=== PATIENT | female | born 1965 | race Caucasian/White ===

== ENCOUNTER → 2017-08-13 07:23 | Outpatient (CLI) | payer OTHER, SELFPAY ==
[2017-08-13 08:22] LABS: Alanine Aminotransferase 34 U/L (12-78); Albumin Level 3.7 gm/dL (3.4-5.0); Alkaline Phosphatase 126 U/L (46-116); Anion Gap 9.6 mEq/L (5-15); Aspartate Amino Transferase 10 U/L (15-37); Bilirubin,Total 0.4 mg/dL (0.2-1.0); Blood Urea Nitrogen 18 mg/dL (7-18); Carbon Dioxide 29 mmol/L (21.0-32.0); Chloride 106 mmol/L (98-107); Chol/HDL Ratio 3.3 (1-3.5); Cholesterol 196 mg/dL (140-200); Creatinine,Serum 0.76 mg/dL (0.55-1.02); Estimated Glomerular Filt Rate 81 ml/min (>60); GFR (African American) 97 ML/MIN (>60); Globulin 3.8 gm/dl (1.3-3.2); Glucose 96 mg/dL (74-106); HDL Cholesterol 59 mg/dL (29-89); LDL Cholesterol 120 mg/dL (0-130); Potassium 4.6 mmoL/L (3.5-5.1); Sodium 140 mmol/L (136-145); Thyroid Stimulating Hormone 1.23 uIU/ml (0.358-3.740); Total Protein,Serum 7.5 gm/dL (6.4-8.2); Triglycerides 85 mg/dL (30-200); VLDL Cholesterol 17 mg/dL (0-40)
== END ==
PROVIDERS: PCP Family Medicine; Visit Provider Physician Assistant
DX: E78.5 Hyperlipidemia, unspecified (principal); Z13.29 Encounter for screening for other suspected endocrine disorder
CPT/HCPCS: 36415; 80053; 80061; 84443

== ENCOUNTER 2021-03-15 20:11 | Emergency (ER) | payer OTHER, SELFPAY ==
[2021-03-15 20:13] VITALS: BP 141/95; PULSE 84; RESP 16; TEMP 36.8; O2SAT 97; BMI 24.4
[2021-03-15 20:18] VITALS: BP 141/95; PULSE 81; O2SAT 97
--- NOTE | 2021-03-15 20:20 | XR_ITS ---
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 Views: 2 or 3 views. COMPARISON: CR LS5 LUMBAR SPINE 5 VIEWS 01/23/2016 2:24 PM FINDINGS: Bones/joints: There is a mild levo convexity scoliosis of the lumbar spine with mild multilevel discogenic disease and spondylosis. There is no acute compression fracture or spondylolisthesis. The posterior elements appear intact and normally articulated. There is facet arthropathy within the mid and lower lumbar spine. Soft tissues: Unremarkable. Intraperitoneal space: Cholecystectomy clips are incidentally noted. Vasculature: There are numerous phleboliths in the pelvis. IMPRESSION: As detailed above.
[2021-03-15 20:31] VITALS: BP 139/87; PULSE 71; O2SAT 97
--- NOTE | 2021-03-15 20:35 | HMH.EDGENADL ---
ED Disposition Clinical Impression: Low back strain Qualifiers: Encounter type: initial encounter Qualified Code(s): S39.012A - Strain of muscle, fascia and tendon of lower back, initial encounter Disposition: Home, Self-Care Condition on Discharge: Fair Instructions: DI for Low Back Pain Additional Instructions: You have been evaluated for low back pain after lifting. Most likely a musculoskeletal injury. Please continue taking ibuprofen 600 mg and Robaxin. Use stretching, heat. Follow-up with your primary care doctor. Return to the emergency department for any new or worsening symptoms. Prescriptions: Ibuprofen [Ibuprofen 600mg Tablet] 600 mg PO Q8 #18 tab Transmission Status: Pending to [facility] methocarbamoL [Methocarbamol 500mg Tablet] 500 mg PO BID #20 tab Transmission Status: Pending to [facility] Referrals: Eleazar Montesinos MD [Primary Care Provider] - Forms: Work/School Release Time of Disposition: 22:05 - Critical Care Critical Care Time: No Attestation: On 03/15/21, the high probability of a clinically significant, sudden or life threatening deterioration of the following system(s) required my full and direct attention, intervention and personal management. The time I documented below is in addition to time spent performing reported procedures but includes the following listed in this critical care notation. Medical Decision Making - Medical Records Medical records reviewed: Yes: I reviewed the patient's medical records. - Amadou Inquiry Pt receiving controlled substance: No Vital Signs: 03/15/21 20:13 03/15/21 20:18 03/15/21 20:31 Temperature 98.3 F Temperature Source Oral Pulse Rate 81 71 Pulse Rate [Right Radial] 84 Respiratory Rate 16 Blood Pressure 141/95 H 139/87 Blood Pressure [Right Arm] 141/95 H Blood Pressure Mean [Right Arm] 110 Blood Pressure Source [Right Arm] Automatic Cuff Blood Pressure Position [Right Arm] Sitting 02 Sat by Pulse Oximetry 97 97 97 Oxygen Delivery Method Room Air Room Air Room Air Orders (Tests/Meds): ED MEDICATIONS Generic Name Dose Route Start Last Admin Trade Name Freq PRN Reason Stop Dose Admin Methocarbamol 500 mg 03/15/21 21:00 03/15/21 20:39 Methocarbamol 500mg Tablet PO 04/14/21 20:59 500 mg BID AVRIL Administration Discontinued Medications Generic Name Dose Route Start Last Admin Trade Name Sharon PRN Reason Stop Dose Admin Ibuprofen 600 mg 03/15/21 20:34 03/15/21 20:38 Ibuprofen 600 Mg Tablet PO 03/15/21 20:35 600 mg ONCE ONE Administration ORDERS Category Date Time Status XR lumbar spine 2-3V Stat Exams 03/15/21 20:20 Taken Medical Decision Narrative: In summary this is a 55-year-old female presenting to the emergency department with right-sided low back pain after lifting. She is clinically stable on arrival. Vital signs within normal limits. Most likely diagnosis is musculoskeletal strain. Cannot exclude stress fracture or other bony abnormality. Will obtain x-rays of the lumbar spine. Given 500 mg Robaxin and 600 mg ibuprofen X-ray shows slight dextroscoliosis. No fracture or other bony abnormalities. Patient counseled to use anti-inflammatories, stretching, motion. Follow-up with PCP. Stable for discharge. General Adult HPI - General Stated complaint: AO 03/15@1850 INJURED BACK Time Seen by Provider: 03/15/21 20:35 Mode of Arrival: Ambulatory Source of Information: Patient Limitations: No Limitations - History of Present Illness HPI narrative: 55-year-old female presenting to the emergency department with right-sided low back pain, injury. 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 As the patient stood she lost her balance. Patient experienced sudden onset of right-sided low back pain. Radiates into her buttock and her leg. Was described as sharp. Now throbbing. Worse with motion. No numbness, w
--- NOTE | 2021-03-15 20:41 | PC.NURSE ---
Lab notified of needing UDS collected for [place] workers comp
--- NOTE | 2021-03-15 20:47 | PC.NURSE ---
pt gone to rad
--- NOTE | 2021-03-15 20:53 | PC.NURSE ---
pt back in room from rad
[2021-03-15 22:25] VITALS: BP 138/96; PULSE 64; RESP 16; TEMP 36.7; O2SAT 98
== END 2021-03-15 22:27 | disposition home or self-care (01) ==
PROVIDERS: Emergency Provider Emergency Medicine; PCP Family Medicine
DX: S39.012A Strain of muscle, fascia and tendon of lower back, initial encounter (principal); X50.0XXA Overexertion from strenuous movement or load, initial encounter
CPT/HCPCS: 72100; 99282

== ENCOUNTER → 2021-05-13 10:20 | Outpatient (CLI) | payer OTHER, SELFPAY ==
--- NOTE | 2021-05-13 10:21 | MR_ITS ---
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 3-D MIP and myelographic images are also rendered and reviewed FINDINGS: There is mild lumbar scoliosis convex left with a clockwise rotation of the lumbar spine. Spinal cord ends at the L1 level. L1-L2: Mild degenerative changes with small Schmorl's nodes at the endplates. Mild facet hypertrophic change. L2-L3: Degenerative disc disease with bulging disc/disc osteophyte complex slightly eccentric toward the right with facet and ligamentum hypertrophic changes with mild right lateral recess narrowing and mild right foraminal narrowing. The bulging disc/disc osteophyte complex has developed since the previous exam L3-L4: Asymmetric bulging disc eccentric toward the left. There is a small foraminal disc protrusion abutting the exiting L3 nerve root similar to the previous exam. Facet and ligamentum hypertrophic change with mild bilateral lateral recess and foraminal narrowing slightly greater on the right compared to the left. The facet and ligamentum hypertrophy is slightly greater. L4-5: 2-3 mm anterolisthesis of L4 with mild disc desiccation and bulging disc with facet and ligamentum hypertrophy with bilateral lateral recess and foraminal narrowing slightly greater on the right compared to the left. These findings have slightly progressed. L5-S1: Facet and ligamentum hypertrophy with mild left-sided foraminal narrowing. No enhancing lesions are evident. IMPRESSION: Abnormal MRI of the lumbar spine with dextroscoliosis with mild rotary component with multilevel lumbar spondylosis with bulging disc, facet ligamentum hypertrophy and with lateral recess and foraminal narrowing. Please see above for detailed description at each level. No extruded herniated disc. No enhancing lesions apparent Dictated by: Timotoe Fletcher MD 05/14/2021 11:30 Timoteo Fletcher MD in [facility] 05/14/2021 11:30
== END ==
PROVIDERS: PCP Family Medicine; Visit Provider Family Medicine
DX: M54.41 Lumbago with sciatica, right side (principal)
CPT/HCPCS: 72158; 76376; A9576

== ENCOUNTER 2021-05-27 08:30 | Outpatient (RCR) | payer OTHER, SELFPAY ==
--- NOTE | 2021-04-16 09:59 | HMH.PTOPEV ---
PT Outpatient Evaluation Rehab PT Outpatient Evaluation Start: 04/16/21 09:24 Freq: Status: Active Protocol: Document 04/16/21 09:24 MENDY (Rec: 04/16/21 09:58 MENDY [id number]) Electronically Signed By Don Alvarez, PT 04/16/21 09:24 Outpatient Therapy Subjective History Subjective History Pt reports work-related injury on 03/15/21. 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 Pt reports R >L sided LBP and hip pain, continued N&T in Bilateral LE' s, and referred pain/mm guarding into Thoracic area. Chief Complaint Pain,Spasms,Stiff,Paresthesia Symptom Type Ache,Dull,Stabbing,Burning, Numbness,Tingling Symptoms Relieved By Nothing Symptoms Aggravated By Standing,Bending/Stooping, Physical Activity,Twisting, Walking,Lifting Prior Functional Limitations None Current Functional Limitations Lifting,Housework,Driving, Sleeping,Standing,Walking, Bending/Stooping Symptom Description Constant and Continuous Level of pain today (0-10) 9 Pain scale - at its best (0-10) 9 Pain scale - at its worst (0-10) 10 Lumbopelvic Eval Posture Thoracic Spine Posture Standing Position Flattened Lumbar Spine Posture Standing Position Flattened Gait Observation General Gait Pattern Observation Antalgic Gait,Shuffling Step Palapation tenderness bilateral thoracic spinal tenderness Yes: 3/4 lumbar spinal tenderness Yes: 4/4 paraspinal tenderness Yes: 3/4 buttock tenderness Yes: 3/4 Lumbar/Sacral Palpation Findings Tenderness,Spasm,Trigger Point ,Muscle Guarding Accessory Movement T-spine Vertebrae Accessory Movements Central P/A [place] that Elicit Symptoms T10 bilateral T11 bilateral T12 bilateral L-spine Vertebrae Accessory Movements Central P/A [place] that Elicit Symptoms L2 bilateral L3 bilateral L4 bilateral L5 bilateral S1 bilateral Range of Motion Lumbar Spine Active Flexion Range of 0-40 Motion (degrees) Lumbar Spine Active Extension Range of 0-5 Motion (degrees) Left Lumbar Spine Lateral Flexion Active 0-20
--- NOTE | 2021-05-15 10:25 | HMH.RHREAS ---
Rehab Reassessment Rehab OP Re-assessment Start: 05/15/21 09:56 Freq: Status: Active Protocol: Document 05/15/21 10:21 MENDY (Rec: 05/15/21 10:24 MENDY [id number]) Electronically Signed By Don Alvarez, PT 05/15/21 10:21 Rehab Re-assessment Subjective Subjective Pt reports 8/10 pain in right side low back this am on VAS, and feels 'maybe a little better' since I eval Objective Objective Notes AROM: LUMBAR SPINE FLX 0-46, ext 0-24, R SB 0-26, L SB 0-35 MMT: BILATERAL HIP FLX 4+/5, B KNEE EXT 5/5, B KNEE FLX 5/5, B DF 5/5 TTP: YASMIN. LUMBAR PARA 1-2/4 Assessment Progress Assessment Slower Than Expected Assessment Notes IMPROVED ROM, STRENGTH, AND TTP Patient goals met STG'S 10/15 Goals Not Met STG'S 11/15, LTG'S 04/17 Plan Plan Pt to continue w/skilled P.T. to make further improvements in lumbar spine AROM, strength , TTP, and gait to allow for optimal function and return to work full-duty. Frequency of Therapy 2-3x/wk Duration of therapy 4-6wks Time and Billing Re-Eval Time 15 Re-Eval Billing Units 1 PHYSICIAN CERTIFICATION: I certify the specified therapy services for Tila Horn are required, authorized, and reviewed every 30 days.
== END 2021-05-27 08:35 | disposition home or self-care (01) ==
LOC: PT 08:30
PROVIDERS: Visit Provider Family Medicine
DX: S39.012A Strain of muscle, fascia and tendon of lower back, initial encounter (principal)
CPT/HCPCS: 97010; 97014; 97035; 97110; 97140; 97163; 97164; G0283

== ENCOUNTER → 2021-11-20 07:58 | Outpatient (CLI) | payer OTHER, SELFPAY ==
[2021-11-20 08:05] LABS: Microscopic, Urine URINE MICROSCOPIC (MICROSCOPIC)
[2021-11-20 08:18] LABS: Appearance,Urine CLOUDY (Clear); Basophils # 0.1 K/mm3 (0-0.2); Basophils % 2.1 % (0.1-2.0); Bilirubin,Urine Negative (Negative); Blood, Urine TRACE-I (Negative); Color,Urine YELLOW (Yellow); Eosinophils # 0.2 K/mm3 (0.0-0.4); Eosinophils % 3.6 % (0.1-12.0); Glucose,Urine (UA) Negative (Negative); Hematocrit 46.4 % (37.0-47.0); Hemoglobin 15.4 g/dL (12.2-16.2); Ketones,Urine Negative (Negative); Leukocyte Esterase,Urine 3+ (Negative); Lymphocytes # 2.2 K/mm3 (0.7-4.5); Lymphocytes % 35.9 % (10-50); Mean Corpuscular HGB Conc 33.1 g/dL (31.8-35.4); Mean Corpuscular Hemoglobin 31.6 pg (27.0-31.2); Mean Corpuscular Volume 95.5 fl (81-99); Mean Platelet Volume 9.4 fl (7.4-10.4); Monocytes # 0.4 K/mm3 (0.1-1.0); Monocytes % 7.2 % (1.7-9.3); Neutrophils # 3.1 K/mm3 (1.8-7.8); Neutrophils % 51.2 % (37.0-80.0); Nitrate,Urine POSITIVE (Negative); Platelet Count 264 K/mm3 (142-424); Protein,Urine Negative (Negative); Red Blood Count 4.86 M/mm3 (4.20-5.40); Red Cell Distribution Width 13.1 % (11.5-17.5); Specific Gravity, Urine 1.015 (1.005-1.030); Urobilinogen,Urine 0.2 EU/dl (0.2)
[2021-11-20 08:35] LABS: RBC,Urine Occasional #/hpf (0-3); WBC,Urine 20-50 #/hpf (0-3)
[2021-11-20 08:36] LABS: Bacteria,Urine 3+ /lpf
[2021-11-20 08:45] LABS: Chloride 106 mmol/L (98-107)
[2021-11-20 08:46] LABS: Potassium 4.3 mmoL/L (3.5-5.1); Sodium 139 mmol/L (136-145)
[2021-11-20 08:48] LABS: Blood Urea Nitrogen 10 mg/dl (7-17); Estimated Glomerular Filt Rate 87 ml/min (>60); GFR (African American) 105 ML/MIN (>60)
[2021-11-20 08:49] LABS: Anion Gap 12.3 mEq/L (5-15); Calcium 9.4 mg/dl (8.4-10.2); Carbon Dioxide 25 mmol/L (22.0-30.0); Glucose 107 mg/dl (74-100)
== END ==
PROVIDERS: PCP Family Medicine; Visit Provider Orthopaedic Surgery
DX: Z01.812 Encounter for preprocedural laboratory examination (principal); Z20.822 Contact with and (suspected) exposure to COVID-19; N39.0 Urinary tract infection, site not specified; B96.20 Unspecified Escherichia coli [E. coli] as the cause of diseases classified elsewhere
CPT/HCPCS: 36415; 80048; 81001; 85025; 87086; 87088; 87186; C9803; U0003; U0005

== ENCOUNTER 2022-01-08 08:30 | Outpatient (RCR) | payer OTHER, SELFPAY | END 2022-01-08 08:35 | disposition home or self-care (01) | LOC: PT 08:30 | PROVIDERS: PCP Family Medicine; Visit Provider Orthopaedic Surgery | DX: M54.50 Low back pain, unspecified (principal); M96.1 Postlaminectomy syndrome, not elsewhere classified | CPT/HCPCS: 97110; 97112; 97163; 97530; 97535 ==

== ENCOUNTER → 2022-07-30 16:05 | Outpatient (CLI) | payer OTHER, SELFPAY ==
[2022-07-30 17:09] LABS: Basophils % 0.6 % (0.1-2.0); Eosinophils # 0.2 K/mm3 (0.0-0.4); Eosinophils % 2.3 % (0.1-12.0); Hematocrit 49.3 % (37.0-47.0); Hemoglobin 15.5 g/dL (12.2-16.2); Lymphocytes # 2.7 K/mm3 (0.7-4.5); Mean Corpuscular HGB Conc 31.4 g/dL (31.8-35.4); Mean Corpuscular Hemoglobin 30.3 pg (27.0-31.2); Mean Corpuscular Volume 96.7 fl (81-99); Mean Platelet Volume 9.7 fl (7.4-10.4); Monocytes # 0.5 K/mm3 (0.1-1.0); Monocytes % 6.6 % (1.7-9.3); Neutrophils # 3.5 K/mm3 (1.8-7.8); Neutrophils % 50.6 % (37.0-80.0); Platelet Count 313 K/mm3 (142-424); Red Cell Distribution Width 12.7 % (11.5-17.5); White Blood Count 6.8 K/mm3 (4.8-10.8)
[2022-07-30 17:25] LABS: Alanine Aminotransferase 31 U/L (12-78); Albumin Level 4.5 g/dl (3.5-5.0); Albumin/Globulin Ratio 1.4 (1.1-1.8); Alkaline Phosphatase 150 U/L (38-126); Anion Gap 6.2 mEq/L (5-15); Aspartate Amino Transferase 27 U/L (14-36); Bilirubin,Total 0.6 mg/dl (0.2-1.3); Blood Urea Nitrogen 12 mg/dl (7-17); Calcium 9.6 mg/dl (8.4-10.2); Carbon Dioxide 27 mmol/L (22.0-30.0); Chloride 108 mmol/L (98-107); Chol/HDL Ratio 4.9 (1-3.5); Cholesterol 258 mg/dl (140-200); Estimated Glomerular Filt Rate 74 ml/min (>60); GFR (African American) 90 ML/MIN (>60); Globulin 3.2 g/dL (1.3-3.2); Glucose 87 mg/dl (74-100); HDL Cholesterol 53 mg/dl (40-60); Potassium 4.2 mmoL/L (3.5-5.1); Sodium 137 mmol/L (136-145); Total Protein,Serum 7.7 g/dl (6.3-8.2); Triglycerides 110 mg/dl (30-150); VLDL Cholesterol 22 mg/dL (0-40)
[2022-07-30 17:35] LABS: Direct LDL Cholesterol 146.95 mg/dL (100-129)
== END ==
PROVIDERS: PCP Family Medicine; Visit Provider Nurse Practitioner Obstetrics & Gynecology
DX: Z01.419 Encounter for gynecological examination (general) (routine) without abnormal findings (principal)
CPT/HCPCS: 36415; 80053; 80061; 85025

== ENCOUNTER → 2022-08-13 07:28 | Outpatient (CLI) | payer OTHER, SELFPAY ==
--- NOTE | 2022-08-13 07:28 | MM_ITS ---
PROCEDURE INFORMATION: Exam: MG Bilateral Screening 3D Mammography Exam date and time: 08/13/2022 7:43 AM Age: 56 years old Clinical indication: Screening examination TECHNIQUE: Imaging protocol: Bilateral Screening tomosynthesis and 2D mammography including computer-aided detection (CAD) when performed. COMPARISON: 1. MG DMSB DIG MAMM-SCREEN YASMIN W/CAD 01/14/2017 8:29 AM 2. MG DMSB DIG MAMM-SCREEN YASMIN 11/13/2015 8:28 AM FINDINGS: MAMMOGRAPHY: Breast composition: The breasts are extremely dense, which lowers the sensitivity of mammography. Mass: None. Architectural distortion: None. Calcifications: No suspicious calcifications. Asymmetric density: None. Skin thickening: None. Axillary adenopathy: None. IMPRESSION: No mammographic evidence of malignancy. Annual screening is recommended unless otherwise clinically indicated. ASSESSMENT: BI-RADS Category 1: Negative
== END ==
PROVIDERS: PCP Family Medicine; Visit Provider Nurse Practitioner Obstetrics & Gynecology
DX: Z12.31 Encounter for screening mammogram for malignant neoplasm of breast (principal)
CPT/HCPCS: 77063; 77067

== ENCOUNTER → 2022-12-18 09:04 | Outpatient (CLI) | payer BC, OTHER, SELFPAY | PROVIDERS: PCP Nurse Practitioner Family; Visit Provider Nurse Practitioner Family | DX: N89.8 Other specified noninflammatory disorders of vagina (principal) | CPT/HCPCS: 87086 ==

== ENCOUNTER → 2023-04-12 15:35 | Outpatient (CLI) | payer BC, OTHER, SELFPAY ==
[2023-04-12 15:54] LABS: Basophils # 0.1 K/mm3 (0-0.2); Basophils % 0.9 % (0.1-2.0); Eosinophils # 0.2 K/mm3 (0.0-0.4); Eosinophils % 2.6 % (0.1-12.0); Hematocrit 43.3 % (37.0-47.0); Hemoglobin 14.6 g/dL (12.2-16.2); Lymphocytes # 2.5 K/mm3 (0.7-4.5); Lymphocytes % 35.3 % (10-50); Mean Corpuscular HGB Conc 33.7 g/dL (31.8-35.4); Mean Corpuscular Hemoglobin 32.8 pg (27.0-31.2); Mean Corpuscular Volume 97.2 fl (81-99); Mean Platelet Volume 9.5 fl (7.4-10.4); Monocytes # 0.3 K/mm3 (0.1-1.0); Monocytes % 4.9 % (1.7-9.3); Neutrophils % 56.4 % (37.0-80.0); Platelet Count 237 K/mm3 (142-424); Red Blood Count 4.45 M/mm3 (4.20-5.40); Red Cell Distribution Width 12.5 % (11.5-17.5); White Blood Count 7.1 K/mm3 (4.8-10.8)
[2023-04-12 16:55] LABS: Alanine Aminotransferase 28 U/L (12-78); Albumin Level 4.2 g/dl (3.5-5.0); Albumin/Globulin Ratio 1.6 (1.1-1.8); Alkaline Phosphatase 121 U/L (38-126); Anion Gap 12.7 mEq/L (5-15); Aspartate Amino Transferase 27 U/L (14-36); Bilirubin,Total 0.2 mg/dl (0.2-1.3); Blood Urea Nitrogen 13 mg/dl (7-17); Carbon Dioxide 26 mmol/L (22.0-30.0); Chloride 101 mmol/L (98-107); Chol/HDL Ratio 4.1 (1-3.5); Cholesterol 210 mg/dl (140-200); Estimated Glomerular Filt Rate 103 ml/min (>60); GFR (African American) 125 ML/MIN (>60); Globulin 2.7 g/dL (1.3-3.2); Glucose 79 mg/dl (74-100); HDL Cholesterol 51 mg/dl (40-60); Potassium 4.7 mmoL/L (3.5-5.1); Sodium 135 mmol/L (136-145); Total Protein,Serum 6.9 g/dl (6.3-8.2); Triglycerides 129 mg/dl (30-150); VLDL Cholesterol 26 mg/dL (0-40)
[2023-04-12 17:06] LABS: Direct LDL Cholesterol 110.06 mg/dL (100-129)
== END ==
PROVIDERS: PCP Physician Assistant; Visit Provider Nurse Practitioner Obstetrics & Gynecology
DX: E78.00 Pure hypercholesterolemia, unspecified (principal)
CPT/HCPCS: 36415; 80053; 80061; 85025

== ENCOUNTER 2024-11-23 08:44 | Outpatient (CLI) | payer BC, SELFPAY ==
[2024-11-23 19:03] LABS: Basophils # 0.1 K/mm3 (0-0.2); Basophils % 1.1 % (0.1-2.0); Eosinophils # 0.2 Kmm3 (0.0-0.4); Eosinophils % 3.5 % (0.1-12.0); Hematocrit 45.7 % (37.0-47.0); Hemoglobin 14.3 g/dL (12.2-16.2); Immature Granulocytes # 0.01 10^3uL; Immature Granulocytes % 0.2 %; Lymphocytes # 1.7 K/mm3 (0.7-4.5); Mean Corpuscular HGB Conc 31.3 g/dL (31.8-35.4); Mean Corpuscular Hemoglobin 29.7 pg (27.0-31.2); Monocytes # 0.5 K/mm3 (0.1-1.0); Monocytes % 9.5 % (1.7-9.3); Neutrophils # 2.9 K/mm3 (1.8-7.8); Neutrophils % 53.7 % (37.0-80.0); Nucleated Red Blood Cells # 0 10^3/uL; Nucleated Red Blood Cells % 0 %; Platelet Count 215 K/mm3 (142-424); Red Blood Count 4.81 M/mm3 (4.20-5.40); Red Cell Distribution Width 12.7 % (11.5-17.5); Red Cell Distribution Width-SD 44.7 fL; White Blood Count 5.4 K/mm3 (4.8-10.8)
[2024-11-23 19:49] LABS: Alanine Aminotransferase 18 U/L (12-78); Albumin/Globulin Ratio 1.4 (1.1-1.8); Alkaline Phosphatase 128 U/L (38-126); Aspartate Amino Transferase 20 U/L (14-36); Bilirubin,Total 0.5 mg/dl (0.2-1.3); Blood Urea Nitrogen 15 mg/dl (7-17); Calcium 9.6 mg/dl (8.4-10.2); Carbon Dioxide 26 mmol/L (22.0-30.0); Chloride 107 mmol/L (98-107); Chol/HDL Ratio 3.6 (1-3.5); Cholesterol 195 mg/dl (140-200); Estimated Glomerular Filt Rate 103 ml/min (>60); GFR (African American) 124 ML/MIN (>60); Globulin 2.8 g/dL (1.3-3.2); Glucose 103 mg/dl (74-100); HDL Cholesterol 54 mg/dl (40-60); Sodium 137 mmol/L (136-145); Total Protein,Serum 6.8 g/dl (6.3-8.2); Triglycerides 72 mg/dl (30-150); VLDL Cholesterol 14 mg/dL (0-40)
[2024-11-23 20:04] LABS: 25-OH Vitamin D, Total 27.4 ng/mL (30-100); Direct LDL Cholesterol 106.07 mg/dL (100-129)
[2024-11-23 20:21] LABS: Thyroid Stimulating Hormone 1.14 uIU/mL (0.465-4.68)
[2024-11-23 20:40] LABS: Hemoglobin A1C 5.3 % (4.0-6.0)
[2024-11-23 21:02] LABS: HIV Combo NEGATIVE (Negative)
[2024-11-23 21:10] LABS: Hepatitis C Ab Qual. W/ RFX NEGATIVE (Negative)
[2024-11-25 05:31] LABS: Hepatitis B Surface Antigen Negative (Negative)
--- OUTSIDE RECORDS SUMMARY | 2024-11-27 09:01 | XMS_ITS | Data Portability ---
Author Organization [facility] - Enzo mitchell MD, Main Office Address [address] [facility] [address] [place] [address] Care Team Providers Care Online Merchandising Coordinator Name Role Phone NATALIIA BUCKNER Automation/Controls Manager Assessment No assessment recorded. Plan of Treatment Reminders Order Date Submit Date Provider Last Modified By Organization Details Last Modified Time Details Appointments None recorded. Lab None recorded. Referral None recorded. Procedures None recorded. Surgeries None recorded. Imaging None recorded. Medication Orders butalbital- acetaminoph en-caffeine 50 mg-325 mg-40 mg tablet 2022 023 [facility], [address] [place], [address], 3 09:10:22 amitriptyli ne 10 mg tablet 2022 023 [facility], [address], [address], 3 09:10:23 Patient TargetsNo targets recorded. Patient Instructions Encounter Date Encounter Id Patient Instructions Last Modified By Organization Details Last Modified Time 11/20/2022 [id number] Finding has been discussed with the patient in detail. Amitriptyline 10 mg at bedtime to prevent headache. Fioricet as needed. She is to remain off work for 2 more weeks. She may return to work on December 07. Return as needed. [email or web address] Not available 11/20/2022 09:29:21 Reason for Referral None Reported. Procedures Surgical History Date Name Laterality Status Provider Name and Address Organization Details Recorded Time 01/01/202 2 Back Surgery completed Mouna Ramírez MD 11/20/2022 09:01:03 Imaging Results None recorded. Procedure Notes None recorded. Medical Equipment None Reported. Allergies No known drug allergies Medications Name Sig Start Date Stop Date Status Note LastModified by Organization Details LastModified Time trazodone 50 mg tablet TAKE 1 TABLET BY MOUTH ONCE DAILY AT BEDTIME 11/20 completed Not Available Not Available Not Available ibuprofen 800 mg tablet TAKE 1 TABLET BY MOUTH EVERY 8 HOURS NEEDED 11/20 completed Not Available Not Available Not Available prednisone 20 mg tablet TAKE 3 TABLETS BY MOUTH ONCE DAILY FOR 5 DAYS 11/20 completed Not Available Not Available Not Available clonazepam 0.5 mg tablet TAKE 1 TABLET BY MOUTH EVERY 12 HOURS NEEDED FOR ANXIETY 11/20 completed Not Available Not Available Not Available sumatriptan 50 mg tablet TAKE 1 TAB BY MOUTH ONE TIME WITH FLUIDS AT ONSET OF MIGRAINE MAY REPEAT DOSE AFTER 2 HOURS DO NOT EXCEED DAILY DOSE OF 4 TABLEST 11/20 completed Not Available Not Available Not Available butalbital- acetaminoph en-caffeine 50 mg-325 mg-40 mg tablet TAKE 1 TO 2 TABLETS BY MOUTH ONCE DAILY NEEDED FOR HEADACHE active Not Available Not Available No t Available oxycodone-a cetaminophe n 5 mg-325 mg tablet TAKE 1 TABLET BY MOUTH EVERY 4 HOURS NEEDED 11/20 completed Not Available Not Available Not Available amitriptyli ne 10 mg tablet TAKE 1 TABLET BY MOUTH AT BEDTIME TO PREVENT HEADACHE active Not Available Not Available No t Available bupropion HCl 75 mg tablet TAKE 1 TABLET BY MOUTH ONCE DAILY active Not Available Not Available No t Available furosemide 20 mg tablet TAKE 1 TABLET BY MOUTH ONCE DAILY 11/20 completed Not Available Not Available Not Available ondansetron 4 mg disintegrat ing tablet DISSOLVE 1 TABLET IN MOUTH EVERY 6 TO 8 HOURS NEEDED 11/20 completed Not Available Not Available Not Available Premarin 0.625 mg/gram vaginal cream INSERT 0.3125 MG VAGINALLY TWICE WEEKLY OFF 5 DAYS REPEAT CYCLE active Not Available Not Available No t Available nitrofurant oin monohydrate /macrocryst als 100 mg capsule TAKE 1 CAPSULE BY MOUTH TWICE DAILY FOR 7 DAYS 11/20 completed Not Available Not Available Not Available BinaxNOW COVID-19 Ag Self Test kit TEST DIRECTED TODAY 11/20 completed Not Available Not Available Not Available Vitals Date Recorded Body height Body mass index (BMI) Body weight Heart rate Respiratory rate Systolic blood pressure Diastolic blood pressure Provider Name and Address Organization Details Last Updated DateTime 3 152.4 cm 24.4 kg/m2 74280.0 5 g 75 /min 17 /min 112 mm[Hg] 77 mm[Hg] Enzo Ramírez MD [address] [facility] [address], [place], [address] 0RILEY MD 3 09:25:50 Social History Question Answer Notes LastModified by Organizat ion Details LastModified Time Tobacco Smoking Status Never Smoker Mouna AndersonRILEY ames MD 11/20/2022 09:00:34 In The 14 Days Before Symptom Onset, Have You Had Close Contact With A Laboratory-confirm ed COVID-19 While That Case Was Ill? No [email or web address] Information n ot available 11/20/2022 In The 14 Days Before Symptom Onset, Have You Had Close Contact With A Person Who Is Under Investigation For COVID-19 While That Person Was Ill? No Information not available 11/20/2022 Have You Been To An Area Known To Be High Risk For COVID-19? No [email or web address] Information not available 11/20/2022 What Was The Date Of Your Most Recent Tobacco Screening? 11/20/2022 [email or web address] Information not available 11/20/2022 Sex: Unknown Functional Status Question Answer Note LastModified by Organization D etails LastModified Time What is your level of alcohol consumption? None [email or web address] Information not available 11/20/2022 Are you able to walk? YESWOREST [email or web address] Information not available 11/20/2022 Mental Status None recorded. Family History Nothing Reported. Medical History Condition Response Other N Hyperthyroidism N Parkinson's Disease N Alzheimer's N Migraines N Depression N Brain Tumors N Glaucoma N Hypothyroidism N Multiple Sclerosis N Neurological Problems N Diabetes N Anxiety Disorder N Autoimmune disease N Arthritis N Tuberculosis N Hyperlipidemia N Cancer N Stroke N Dementia N Asthma N Epilepsy/Seizures N Vertigo N Aneurysm N Heart Disease N Fibromyalgia N Headaches N Hypertension N Kidney Disease N Gynecological HistoryNo gynecological history recorded. Obstetrics History GPAL:G 0 P 0 0 0 0 Past Encounters Encounter ID Performer Location Encounter Start Date Encounter Closed Date Diagnosis/Indication Diagnosis SNOMED-CT Code Diagnosis ICD10 Code Diagnosis Note [id number] Enzo Ramírez MD Main Office [address], [facility] [address] [place] [address] 11/20/2022 08:34:48 11/20/2022 09:30:07 Posttraumatic headache 76802359 G44.309 The patient is a 57-year-ol d white female. She has a work-relat ed injury. She has posttrauma tic headache. Health Concerns Section Related Observation LastModified by Organization Detai ls LastModified Time None Recorded Concern Status LastModified by Organization Details LastModified Time None Recorded Advance Directives Directive None Recorded Payers Insurance Date Sequence Insurance Name Policy Number Policy Mackay Covered Member ID Mackay Member ID Guarantor Name 11/17/2022 [facility] Alex torres Kory Notes Date Note Type Note Provider Name a ct Address Organization Details Recorded Time 11/20/2022 text/html Tila is a 57-year-old white female. 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 She had a work-related injury on October 12. She fell at work and she landed on her left side of face. She has soft tissue injury. She has CT scan of the brain, facial bone, cervical spine that was unremarkable. She complains of severe pain and headache with photophobia and phonophobia. Bright light triggers headache. She has been using ibuprofen with no improvement. She has been off work. She has some pain below her left eye. Enzo Ramírez MD [address], [facility] [address], [place], [address], [facility] - Enzo Ramírez MD 11/20/2022 09:29:49 OBGyn Episode No OBEpisode recorded.
--- OUTSIDE RECORDS SUMMARY | 2024-11-27 09:01 | XMS_ITS | Clinical Summary ---
Author Organization [facility] Address [address] [place] [phone] Phone [email or web address] Care Team Providers Care Nuclear Scientist Name Role Phone Provider, No Primary Care Provider Unavailabl e Allergies Active Allergy Reactions Criticality Noted Date Comments Codeine Rash Low 11/03/2022 Latex Itching,Rash Low 11/03/2022 Medications traZODone (DESYREL) 50 MG tablet Take 50 mg by mouth every night. 3 Active nitrofurantoin, macrocrystal-mon ohydrate, (MACROBID) 100 MG capsule TAKE 1 CAPSULE BY MOUTH TWICE DAILY FOR 7 DAYS 3 Active Premarin 0.625 MG/GM cream 3 Active clonazePAM (KlonoPIN) 0.5 MG tablet Take 0.5 mg by mouth every 12 (twelve) hours if needed for anxiety. 3 Active buPROPion (WELLBUTRIN) 75 MG tablet Take 75 mg by mouth 1 (one) time each day. 3 Active ibuprofen (MOTRIN) 800 MG tablet Take 800 mg by mouth every 6 (six) hours if needed for mild pain. Active acetaminophen (TYLENOL) 500 MG tablet Take by mouth every 6 (six) hours if needed for mild pain. Active amitriptyline (ELAVIL) 10 MG tablet TAKE 1 TABLET BY MOUTH AT BEDTIME TO PREVENT HEADACHE 3 Active butalbital-aceta minophen-caffein e (FIORICET) 50-325-40 MG per tablet TAKE 1 TO 2 TABLETS BY MOUTH ONCE DAILY NEEDED FOR HEADACHE 3 Active ondansetron ODT (ZOFRAN-ODT) 4 MG dispersible tablet DISSOLVE 1 TABLET IN MOUTH EVERY 6 TO 8 HOURS NEEDED 3 Active Active Problems No known active problems Social History Tobacco Use Types Packs/Day Years Used Date Smoking Tobacco: Never Smokeless Tobacco: Never Intimate Partner Violence Answer Date R ecorded Insults You Not on file 03/12/2022 Threatens You Not on file 03/12/2022 Screams at You Not on file 03/12/2022 Physically Hurt Not on file 03/12/2022 Intimate Partner Violence Score Not on file 03/12/2022 Depression Answer Date Recorded PHQ Total Score Not on file 12/07/2023 Stress Answer Date Recorded Stress in your Life Not on file 04/12/2024 Dealing with Stress 3 04/12/2024 Comments Unknown Sex and Gender Information Value Date Recorded Sex Assigned at Not on file Legal Sex Female 3:17 PM CDT Gender Identity Not on file Sexual Orientation Not on file Last Filed Vital Signs Vital Sign Reading Time Taken Comments Blood Pressure 144/80 09/25/2024 7:30 PM EDT Pulse 80 09/25/2024 7:30 PM EDT Temperature 36.2 C (97.2 F) 09/25/2024 7:30 PM EDT Respiratory Rate 14 09/25/2024 7:30 PM EDT Oxygen Saturation 97% 09/25/2024 7:30 PM EDT Inhaled Oxygen Concentration - - Weight 60.7 kg (133 lb 12.8 oz) 09/25/2024 7:30 PM EDT Height 152.4 cm (5') 09/25/2024 7:30 PM EDT Body Mass Index 26.13 09/25/2024 7:30 PM EDT Plan of Treatment Health Maintenance Due Date Last Done Comments Dental Cleaning/Exam 1966 HIV Screening 1966 Hepatitis C Screening 1966 Cervical Cancer Screening 1982 Hep B Infection Screening - Triple Screen 1984 Hepatitis B Immunization (1 of 3 - 19+ 3-dose series) 1985 Breast Cancer Screening 1996 Colorectal Cancer Screening 1996 Tetanus Diphtheria and Pertussis Immunization (1 - Tdap) 12/23/2005 12/22/2005 Zoster Immunization (1 of 2) 2016 Annual Preventive Exam 03/12/2023 03/12/2022 Covid-19 Immunization ( season) 2024 07/13/2020, 06/22/2020 Influenza Immunization (Season Ended) 2025 HIB Immunization Aged Out No longer e ligible based on patient's age to complete this topic HPV Immunization Aged Out No longer e ligible based on patient's age to complete this topic Hepatitis A Immunization Aged Out No longer eligible based on patient's age to complete this topic Pneumococcal: Ped (0 to 5 Yrs) and At-Risk Member (6 to 64 Yrs) Aged Out No longer eligible b ased on patient's age to complete this topic Polio Immunization Aged Out No longer eligible based on patient's age to complete this topic Insurance [place] 5 [facility] [id number] [place] [address] Care Teams Nuclear Scientist Relationship Specialty Start Date End Date [place], [place] [address] PCP - General Telephony Engineer 10/23/22
== END 2024-11-23 23:59 | disposition home or self-care (01) ==
LOC: LAB.DROPOF 11-27 08:45
PROVIDERS: PCP Family Medicine; Visit Provider Family Medicine
DX: Z11.59 Encounter for screening for other viral diseases (principal); Z76.89 Persons encountering health services in other specified circumstances
CPT/HCPCS: 80053; 80061; 82306; 83036; 84443; 85025; 86803; 87340; 87389

== ENCOUNTER 2024-12-04 07:38 | Outpatient (CLI) | payer BC, SELFPAY ==
--- OUTSIDE RECORDS SUMMARY | 2024-12-04 07:40 | XMS_ITS | Clinical Summary ---
Author Organization [facility] Address [address] [place] [address] Phone [email or web address] Care Team Providers Care Medication Administration Professional Name Role Phone Provider, No Primary Care [...] complete this topic Insurance [place] 5 [facility] Address: [address] [place] [address] [employer] [id number] [place] [address] Care Teams Medication Administration Professional Relationship Specialty Start Date End Date [place], [place] [address] PCP - General Assembling Motor Builder 10/23/22
--- OUTSIDE RECORDS SUMMARY | 2024-12-04 07:40 | XMS_ITS | Data Portability ---
Author Organization [facility] - Enzo mitchell MD, Main Office Address [address] [facility] [address] [place] [address] Care Team Providers Care Clerical Aide Teacher Name Role Phone NATALIIA BUCKNER Retort Operator Assessment No assessment recorded. Plan of Treatment Reminders Order Date Submit Date Provider Last Modified By Organization Details Last Modified Time Details Appointments None recorded. Lab None recorded. Referral None recorded. Procedures None recorded. Surgeries None recorded. Imaging None recorded. Medication Orders butalbital- acetaminoph en-caffeine 50 mg-325 mg-40 mg tablet 2022 023 [facility] [place], [address], 3 09:10:22 amitriptyli ne 10 mg tablet 2022 023 [facility], [address], [address], 3 09:10:23 Patient TargetsNo targets recorded. Patient Instructions Encounter Date Encounter Id Patient Instructions Last Modified By Organization Details Last Modified Time 11/20/2022 [id number] Finding has been discussed with the patient [...] Updated DateTime 3 152.4 cm 24.4 kg/m2 02955.0 5 g 75 /min 17 /min 112 mm[Hg] 77 mm[Hg] Enzo Ramírez MD [address] [facility], [facility] [address], [place], [address] 0RILEY MD 3 09:25:50 Social History Question Answer Notes LastModified by Organizat ion Details LastModified Time Tobacco Smoking Status Never Smoker Mouna AndersonRILEY ames MD 11/20/2022 09:00:34 In The 14 Days Before Symptom Onset, Have You Had Close Contact With A Laboratory-confirm ed COVID-19 While That Case Was Ill? No [email or web address] Information n ot available 11/20/2022 In The 14 Days Before Symptom Onset, Have You Had Close Contact With A Person Who Is Under Investigation For COVID-19 While That Person Was Ill? No [email or web address] Information not available 11/20/2022 Have You Been To An Area Known To Be High Risk For COVID-19? No [email or web address] Information not available 11/20/2022 What Was The Date Of Your Most Recent Tobacco Screening? 11/20/2022 [email or web address] Information not available 11/20/2022 Sex: Unknown Functional Status Question Answer Note LastModified by Organization D etails LastModified Time What is your level of alcohol consumption? None [email or web address] Information not available 11/20/2022 Are you able to walk? YESWOREST [email or web address] Information not available 11/20/2022 Mental Status None [...] SNOMED-CT Code Diagnosis ICD10 Code Diagnosis Note [id number] Enzo Ramírez MD Main Office [address], [facility] [address] [place] [address] 11/20/2022 08:34:48 11/20/2022 09:30:07 Posttraumatic headache [id number] G44.309 The patient is a 57-year-ol d [...] ID Mackay Member ID Guarantor Name 11/17/2022 [facility] Alex torres Kory Notes Date Note Type Note Provider Name a pa Address Organization Details Recorded Time 11/20/2022 text/html Tila is a 57-year-old white female. 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 She had a work-related injury on October [...] eye. Enzo Ramírez MD [address], [facility] [address], [place], [address], [facility] - Enzo Ramírez MD 11/20/2022 09:29:49 OBGyn Episode No OBEpisode recorded.
--- NOTE | 2024-12-04 08:00 | MM_ITS ---
PROCEDURE INFORMATION: Exam: MG Bilateral Screening 3D Mammography Exam date and time: 12/04/2024 7:40 AM Age: 59 years old Clinical indication: Screening exam. TECHNIQUE: Imaging protocol: Bilateral Screening tomosynthesis and 2D mammography including computer-aided detection (CAD) when performed. COMPARISON: 1. MG MM DIG SCREENING MAMM BI W/CAD 08/13/2022 7:43 AM 2. MG DMSB DIG MAMM-SCREEN YASMIN W/CAD 01/14/2017 8:29 AM FINDINGS: MAMMOGRAPHY: Breast composition: The breasts are extremely dense, which lowers the sensitivity of mammography. Mass: No suspicious masses. Architectural distortion: None. Calcifications: No suspicious calcifications. Asymmetric density: None. Skin thickening: None. Axillary adenopathy: None. IMPRESSION: No mammographic evidence of malignancy. Annual screening is recommended unless otherwise clinically indicated. ASSESSMENT: BI-RADS Category 1: Negative.
== END 2024-12-04 23:59 | disposition home or self-care (01) ==
LOC: RAD 07:39
PROVIDERS: PCP Family Medicine; Visit Provider Family Medicine
DX: Z12.31 Encounter for screening mammogram for malignant neoplasm of breast (principal); R92.333 Mammographic heterogeneous density, bilateral breasts
CPT/HCPCS: 77063; 77067